=== PATIENT | male | born 1995 | race Caucasian/White ===

== ENCOUNTER 2017-07-14 03:19 | Emergency (ER) | payer MEDICAID ==
[~2017-07-14] VITALS: Ht 172.7 cm; Wt 77.1 kg
[2017-07-14 03:20] VITALS: BP_SYST 152
--- NOTE | 2017-07-14 03:20 | NUR ---
Patient to ER bed 08 to gown for evaluation. Side rails up. Report given to LIZANDRO Marin
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
--- NOTE | 2017-07-14 03:24 | NUR ---
ER at bedside examining patient.
--- NOTE | 2017-07-14 03:26 | NUR ---
Julien Rucker's at bedside speaking to patient
[2017-07-14] MEDS ORDERED: NACL 0.9% 1,000 ML IV ONE (03:27)
[2017-07-14] MEDS ORDERED: DIPHENHYDRAMINE INJ 50 MG/ML VIAL IVP ONE (03:30)
[2017-07-14] MEDS ORDERED: MORPHINE 4 MG/ML INJ. SYRINGE IVP ONE (03:30)
--- NOTE | 2017-07-14 03:30 | NUR ---
# 18 gauge angiocath placed to R AC. Use of asceptic technique. Opsite placed over site. Blood return noted. Flushed with 10 cc of normal saline. No evidence of infiltration noted. Patient tolerated well.
[2017-07-14] MEDS ORDERED: ETOMIDATE 20 MG/ 10 ML VIAL (AMIDATE) IVP ONE (04:00)
--- NOTE | 2017-07-14 04:07 | NUR ---
Time out with Tomas Singh RN, patient and Black RT. Full name, , site of procedure, medications and allergies confirmed before procedure.
--- NOTE | 2017-07-14 04:08 | NUR ---
Moderate sedation began. See forms in chart.
[2017-07-14] MEDS ORDERED: fentaNYL CITRATE/PF 100 MCG/2 ML AMP IVP ONE ×2 (04:30→05:30)
[2017-07-14] MEDS: fentaNYL CITRATE/PF 100 MCG/2 ML AMP IVP ONE ×2 (05:25→05:30)
[2017-07-14 05:50] VITALS: BP_SYST 158
--- NOTE | 2017-07-14 05:50 | NUR ---
Patient given written and verbal discharge instructions and verbalizes understanding. ER MD discussed with patient the results and treatment provided. Patient in stable condition. ID arm band removed. IV catheter removed intact and dressing applied, no active bleeding. Rx of [place] given. Patient educated on pain management and to follow up with PMD. Pain Scale 2/10. Opportunity for questions provided and answered. Medication side effect fact sheet provided.
--- NOTE | 2017-07-14 09:33 | NUR ---
Pt came back to hospital given written discharge instructions. Was wearing sling. States that he had an appt with PMD. Advised pt to also follow up with ortho doctor. Given RX of [place]. Opportunity for questions provided and answered. Medication side effect fact sheet provided. Addendum: 07/14/17 at 0936 by [email or web address] Discharge packet and RX was still in ER.
== END 2017-07-14 05:50 | disposition home or self-care (01) ==
LOC: SED 03:19
DX: S52.122A Displaced fracture of head of left radius, initial encounter for closed fracture (principal); I10 Essential (primary) hypertension; Z88.8 Allergy status to other drugs, medicaments and biological substances; W19.XXXA Unspecified fall, initial encounter; Y93.89 Activity, other specified; Y92.89 Other specified places as the place of occurrence of the external cause; Y99.8 Other external cause status
CPT/HCPCS: 24655; 73070; 73080; 96361; 96374; 96375; 96376; 99285; J1200; J2270; J3010; J3490; J7030

== ENCOUNTER 2018-08-29 12:34 | Emergency (ER) | payer MEDICAID ==
[~2018-08-29] VITALS: Ht 172.7 cm; Wt 87.5 kg
[2018-08-29 12:50] VITALS: BP_SYST 128
--- NOTE | 2018-08-29 13:03 | NUR ---
Patient to ER bed 2 to gown for evaluation. Side rails up. Report given to Velia BONE.
--- NOTE | 2018-08-29 13:05 | NUR ---
Pt brought by Selene young&Michael4, ambulatory , pt c/o pain on L 3rd finger, pt had dislocation of finger which he self reduced at time of injury, skin pink and warm, cap refill <3.
--- NOTE | 2018-08-29 13:15 | NUR ---
Jere SHORE at bedside examining patient.
--- NOTE | 2018-08-29 14:17 | NUR ---
Went to room to discharge patient. Patient was not located. Patient presumed to have left without discahrge instructions. Rx of Motrin was not provided as the patient could not be located.
== END 2018-08-29 14:17 | disposition home or self-care (01) ==
LOC: SED 12:34
DX: S56.114A Strain of flexor muscle, fascia and tendon of left middle finger at forearm level, initial encounter (principal); R03.0 Elevated blood-pressure reading, without diagnosis of hypertension; W19.XXXA Unspecified fall, initial encounter; Y93.89 Activity, other specified; Y92.832 Beach as the place of occurrence of the external cause; Y99.8 Other external cause status
CPT/HCPCS: 73140-TC; 99283

== ENCOUNTER 2019-05-01 17:10 | Emergency (ER) | payer MEDICAID ==
[~2019-05-01] VITALS: Ht 170.2 cm; Wt 107.5 kg
[2019-05-01 17:14] VITALS: BP_SYST 146
--- NOTE | 2019-05-01 18:17 | NUR ---
Per registration pt LWBS
== END 2019-05-01 18:17 | disposition left against medical advice (07) ==
LOC: SED 17:10
DX: R07.9 Chest pain, unspecified (principal); Z53.21 Procedure and treatment not carried out due to patient leaving prior to being seen by health care provider

== ENCOUNTER 2021-02-25 00:33 | Emergency (ER) | payer MEDICAID ==
[2021-02-25 00:33] VITALS: BP_SYST 135
[2021-02-25] MEDS ORDERED: CORTEARS EACH EAR (00:56)
== END 2021-02-25 01:02 | disposition home or self-care (01) ==
LOC: SED 00:33
DX: H60.501 Unspecified acute noninfective otitis externa, right ear (principal); Z79.899 Other long term (current) drug therapy
CPT/HCPCS: 99283